=== PATIENT | female | born 1955 | race African-American/Black ===

== ENCOUNTER 2017-11-27 14:36 | Emergency (ER) | payer OTHER ==
[~2017-11-27] VITALS: Ht 162.6 cm; Wt 106.5 kg
[~2017-11-27 14:36] MED LIST: AMLODIPINE BESY10 MG PO; ASPIR-LOW81 MG PO; ASPIRIN325 MG PO; GLUCOPHAGE1000 MG PO; LANTUS 3 M100 UNITS1 SC; LEVEMIR100 UNIT/2 SC; LISINOPRIL20 MG PO; NOVOLOG PE100 UNITS/ SC; PRAVASTATIN SOD40 MG PO; PRILOSEC OTC20 MG PO; TYLENOL EXTRA500 MG PO; VITAMIN D2000 UNI1 PO; VITAMIN D31000 UNI2 PO
[2017-11-27 15:13] LABS: HEMATOCRIT 38.4 % (36.0-46.0); HEMOGLOBIN 12.8 G/DL (11.9-15.5); MCH 27.5 PG (29.0-34.0); MCHC 33.3 G/DL (30.0-36.0); MCV 82.6 FL (83-99); PLATELET COUNT 288 K/uL (156-360); RBC DIS.WIDTH-CV 13.4 % (11.8-14.6); RBC DIS.WIDTH-SD 40.3 % (39-53); RED BLOOD COUNT 4.65 M/uL (3.80-5.20); WHITE BLOOD COUNT 5.9 K/uL (4.1-10.2)
[2017-11-27 15:48] LABS: CHLORIDE 105 MEQ/L (99-109); GFR ESTIMATE (CALCULATED) > 59 mL/min/; GLUCOSE 129 mg/dL (70-99); POTASSIUM 3.9 MEQ/L (3.7-5.4); SODIUM 138 MEQ/L (136-147); UREA NITROGEN (BUN) 24 mg/dL (9-23)
[2017-11-27 18:31] VITALS: BP 127/74
== END 2017-11-27 18:33 | disposition home or self-care (01) ==
LOC: EME 14:36
PROVIDERS: Family Medicine
DX: R42 Dizziness and giddiness (principal); R51 Headache; M54.5 Low back pain; R06.02 Shortness of breath; I10 Essential (primary) hypertension; E11.9 Type 2 diabetes mellitus without complications; Z79.4 Long term (current) use of insulin; Z88.1 Allergy status to other antibiotic agents; Z87.891 Personal history of nicotine dependence; Z82.3 Family history of stroke
CPT/HCPCS: 70450; 80048; 81003; 82948; 85027; 93005; 99281; 99285